=== PATIENT | female | born 2005 | race African-American/Black ===

== ENCOUNTER 2024-01-29 16:22 | Emergency (ER) | payer BC ==
[~2024-01-29] VITALS: Ht 152.4 cm; Wt 38.6 kg
[2024-01-29 16:29] VITALS: TEMP 98.7
[2024-01-29] MEDS ORDERED: Ondansetron 4 MG/2 ML VIAL IV ONE (16:45)
[2024-01-29] MEDS ORDERED: NS 1,000 ML IV ONE (16:45)
[2024-01-29 17:00] LABS: BASO % 0.4 % (0.0-2.0); EOS # 0.1 K/mm3 (0.0-0.7); EOS % 1.4 % (0.0-4.0); GRAN # 3.7 K/mm3 (1.4-6.5); GRAN % 46.3 % (42.2-75.2); HEMOGLOBIN 11.3 g/dl (12.0-15.0); LYMPH # 3.1 K/mm3 (1.2-3.4); LYMPH % 38.1 % (20.0-51.0); MEAN CELL VOLUME 80 fl (80.0-95.0); MEAN CORPUSCULAR HEMOGLOBIN 26 pg (26-32); MEAN CORPUSCULAR HGB CONC 32 g/dl (33.0-37.0); MEAN PLATELET VOLUME 9.7 fl (7.4-10.4); MONO # 1.1 K/mm3 (0.1-0.6); MONO % 13.6 % (1.7-9.3); PLATELET COUNT 378 K/mm3 (130-400); RED BLOOD COUNT 4.42 M/mm3 (4.10-5.30)
[2024-01-29 17:01] LABS: HEMATOCRIT 35.4 % (35.0-45.0)
[2024-01-29 17:05] LABS: URINE APPEARANCE CLOUDY (CLEAR/HAZY); URINE BLOOD 3+ (NEGATIVE); URINE COLOR YELLOW (YELLOW); URINE GLUCOSE NEGATIVE (NEGATIVE); URINE KETONE 2+ (NEGATIVE); URINE NITRATE NEGATIVE (NEGATIVE); URINE PROTEIN(semi-quant) 1+ (NEGATIVE)
[2024-01-29 17:13] LABS: ALBUMIN 4.4 g/dL (3.5-5.0); BILIRUBIN,TOTAL 1.2 mg/dL (0.2-1.2); CALCIUM 9.2 mg/dL (8.4-10.2); CREATININE, serum 1.05 mg/dL (0.57-1.11); POTASSIUM 4.3 mEq/L (3.5-4.5); TOTAL PROTEIN 8.2 g/dl (6.2-8.1)
[2024-01-29] MEDS ORDERED: Iohexol 300 - 100 ML VIAL IV ONE (17:31)
[2024-01-29] MEDS ORDERED: NS 100 ML IV SCH (17:32)
[2024-01-29] MEDS ORDERED: LR 1,000 ML IV ONE (18:00)
[2024-01-29 18:40] LABS: COLLECTION METHOD CLEAN CATCH
[2024-01-29 19:20] LABS: CALCIUM 8.2 mg/dL (8.4-10.2); CREATININE, serum 0.85 mg/dL (0.57-1.11); POTASSIUM 4.5 mEq/L (3.5-4.5)
[2024-01-29] MEDS ORDERED: ZOFRAN 4MG T4 MG/TAB PO (19:59)
[2024-01-29 20:09] VITALS: BP 110/98; PULSE 87
== END 2024-01-29 20:11 | disposition home or self-care (01) ==
LOC: COL.ER 16:22
PROVIDERS: Physician Assistant
DX: R11.2 Nausea with vomiting, unspecified (principal); E87.29 Other acidosis
CPT/HCPCS: J2405; J7030; J7120; Q9967

== ENCOUNTER 2024-01-30 23:33 | Emergency (ER) | payer BC ==
[~2024-01-30] VITALS: Ht 149.9 cm; Wt 38.6 kg
[~2024-01-30 23:33] MED LIST: ZOFRAN 4MG T4 MG/TAB PO
[2024-01-30] MEDS ORDERED: LR 1,000 ML IV ONE (23:45)
[2024-01-31 00:45] LABS: HEMOGLOBIN 10.6 g/dl (12.0-15.0); MEAN CELL VOLUME 79 fl (80.0-95.0); MEAN CORPUSCULAR HEMOGLOBIN 25 pg (26-32); MEAN CORPUSCULAR HGB CONC 32 g/dl (33.0-37.0); MEAN PLATELET VOLUME 9.4 fl (7.4-10.4); PLATELET COUNT 276 K/mm3 (130-400); RED BLOOD COUNT 4.17 M/mm3 (4.10-5.30); REDCELL DISTRIBUTION WIDTH-CV 16.6 % (11.5-14.5)
[2024-01-31] MEDS ORDERED: diphenhydrAMINE 50 MG/ML 1 ML VIAL IV ONE ×2 (00:45)
[2024-01-31] MEDS ORDERED: Haloperidol Lactate 5 MG/ML VIAL IV ONE (00:45)
[2024-01-31 00:46] LABS: HEMATOCRIT 33.1 % (35.0-45.0)
[2024-01-31 01:42] LABS: COLLECTION METHOD CLEAN CATCH
[2024-01-31 01:58] LABS: URINE APPEARANCE Clear (CLEAR/HAZY); URINE COLOR YELLOW (YELLOW); URINE PROTEIN(semi-quant) TRACE (NEGATIVE)
[2024-01-31 01:59] LABS: URINE BLOOD TRACE-INTACT (NEGATIVE); URINE GLUCOSE Negative (NEGATIVE); URINE KETONE 3+ (NEGATIVE); URINE NITRATE Negative (NEGATIVE)
[2024-01-31 02:04] LABS: ANISOCYTOSIS 1+; BAND 10 % (0-10); LYMPHOCYTE 13 % (20.0-51.0); NEUTROPHILS 73 % (42.0-75.2); PLATELET ESTIMATE NORMAL (NORMAL)
[2024-01-31] MEDS ORDERED: LR 1,000 ML IV ONE (02:15)
[2024-01-31 02:27] LABS: ALBUMIN 4.1 g/dL (3.5-5.0); BILIRUBIN,TOTAL 1.6 mg/dL (0.2-1.2); CALCIUM 9.3 mg/dL (8.4-10.2); CREATININE, serum 0.85 mg/dL (0.57-1.11); POTASSIUM 3.9 mEq/L (3.5-4.5); TOTAL PROTEIN 7.6 g/dl (6.2-8.1)
[2024-01-31 02:50] LABS: SALICYLATE < 5.0 mg/dL (15.0-30.0)
[2024-01-31] MEDS ORDERED: Iohexol 300 - 100 ML VIAL IV ONE (03:07)
[2024-01-31] MEDS ORDERED: NS 40 ML IV ONE (03:08)
[2024-01-31 07:58] VITALS: BP 123/96; PULSE 66; TEMP 98.3
== END 2024-01-31 08:06 | disposition short-term general hospital (02) ==
LOC: COL.ER 23:33
PROVIDERS: Emergency Medicine
DX: R10.9 Unspecified abdominal pain (principal); R11.2 Nausea with vomiting, unspecified; R74.01 Elevation of levels of liver transaminase levels
CPT/HCPCS: J1200; J1630; J7120; Q9967